=== PATIENT | female | born 1960 | race Caucasian/White ===

== ENCOUNTER 2016-09-14 13:41 | Emergency (ER) | payer BC, OTHER ==
[2016-09-14 13:55] VITALS: BP 166/74
[2016-09-14] MEDS ORDERED: Dexamethasone 4 MG/ML SDV IM ONE (14:19)
--- NOTE | 2016-09-14 14:36 | EDM.PDOC ---
Scribed by Dina Mason 09/14/16 1435 for Robert Reinoso MD ED HPI GENERAL MEDICAL PROBLEM - General Chief Complaint: Back Pain or Injury Stated Complaint: [id number] BACK PAIN Time Seen by Provider: 09/14/16 13:48 Source of Information: Reports: Patient, RN, RN Notes Reviewed History Limitations: Reports: No Limitations - History of Present Illness INITIAL COMMENTS - FREE TEXT/NARRATIVE: Complaining of severe low back pain radiating to left leg/foot sustained 2 weeks ago when pulling weeds. History of severe low back injury 30 years ago, but hasn't had problems with it for years. Denies loss of bowel or bladder control, saddle numbness or motor weakness. Location: Reports: Back Quality: Reports: Ache Severity: Severe Improves with: Reports: None Worsens with: Reports: None Associated Symptoms: Reports: No Other Symptoms Back Pain Score (Numeric/FACES): 10 - Related Data Allergies Allergy/AdvReac Type Severity Reaction Status Date / Time acetaminophen [From Susanna] Allergy Other Verified 09/14/16 14:00 chlorpheniramine Allergy Other Verified 09/14/16 14:00 [From Drjonny] cyclobenzaprine Allergy Other Verified 09/14/16 13:59 [From Flexeril] oxycodone [From OxyContin] Allergy Other Verified 09/14/16 14:00 oxymetazoline [From Drjonny] Allergy Other Verified 09/14/16 14:00 pheniramine [From Dristan] Allergy Other Verified 09/14/16 14:00 phenylephrine [From Drjonny] Allergy Other Verified 09/14/16 14:00 pseudoephedrine Allergy Other Verified 09/14/16 14:00 [From Susanna] Home Meds: Home Meds Cyclobenzaprine [Flexeril] 10 mg PO BID 09/14/16 [History] buPROPion HCl [Forfivo Xl] 1 tab PO DAILY 09/14/16 [History] methylPREDNISolone [Medrol] 1 tab PO ASDIRECTED 09/14/16 [History] oxyCODONE HCl/Acetaminophen [oxyCODONE-Acetaminophen 5-325] 2.5 mg PO Q6HR 09/14 [History] Past Medical History Musculoskeletal History: Reports: Other (See Below) (low yoana k injury 30 years ago.) Endocrine/Metabolic History: Reports: Obesity/BMI 30+ - Past Surgical History GI Surgical History: Reports: Hernia, Abdominal (x2.) Female Surgical History: Reports: Hysterectomy Musculoskeletal Surgical History: Reports: Other (See Below) (left knee surgery. ) ED ROS GENERAL - Review of Systems Review Of Systems: ROS reveals no pertinent complaints other than HPI. ED EXAM,LOWER BACK PAIN/INJURY - Physical Exam Exam: See Below Exam Limited By: No Limitations General Appearance: Alert, WD/WN, No Apparent Distress, Obese Neck: Normal Inspection, Supple, Non-Tender, Full Range of Motion Respiratory/Chest: No Respiratory Distress, Lungs Clear, Normal Breath Sounds, No Accessory Muscle Use, Chest Non-Tender Cardiovascular: Normal Peripheral Pulses, Regular Rate, Rhythm, No Edema, No Gallop, No JVD, No Murmur, No Rub GI/Abdominal: Other (benign obese abdomen) (Female) Exam: Deferred Rectal (Female) Exam: Deferred Back Exam: Other (Decreased ROM L-spine with generalized lower lumbar region and tenderness left greater than right.) Neurological: Other (subjectively decreased sensation to light to left lower extremity. No motor weakness.) Psychiatric: Normal Affect, Normal Mood Skin Exam: Warm, Dry, Intact, Normal Color, No Rash Course - Vital Signs Last Recorded V/S: Last Vital Signs Temp 35.9 C 09/14/16 13:51 Pulse 95 09/14/16 13:51 Resp 20 09/14/16 13:51 BP 166/74 H 09/14/16 13:51 Pulse Ox 97 09/14/16 13:51 - Orders/Labs/Meds Meds: Medications Discontinued Medications Generic Name Dose Route Start Last Admin Trade Name Ofelia PRN Reason Stop Dose Admin Dexamethasone 8 mg 09/14/16 14:19 09/14/16 14:26 Dexamethasone IM 09/14/16 14:20 8 mg ONETIME ONE Administration Departure - Departure Time of Disposition: 14:22 Disposition: Home, Self-Care 01 Condition: Fair Clinical Impression: Acute exacerbation of chronic low back pain, Lumbosacral radiculopathy - Discharge Information Instructions: Lumbosacral Radiculopathy Forms: ED Department Discharge Additional Instructions: RX: Decadron 4mg. Increase Gabapentin to 600mg 3 times a day. Continue other meds as prescribed. Follow up tomorrow with Maria A Leiphon for recheck and MRI of L-spine. I have read and agree with the documentation that has been completed regarding this visit. By signing this record, I attest that the documentation was completed in my physical presence and is an accurate record of the encounter.
== END 2016-09-14 14:37 | disposition home or self-care (01) ==
LOC: DL.ED 13:41
DX: M54.17 Radiculopathy, lumbosacral region (principal); Z88.8 Allergy status to other drugs, medicaments and biological substances; Z88.6 Allergy status to analgesic agent; Z79.899 Other long term (current) drug therapy; Z90.710 Acquired absence of both cervix and uterus; Z88.5 Allergy status to narcotic agent
CPT/HCPCS: 96372; 99283; J1100

== ENCOUNTER 2017-11-11 06:31 | Day surgery (SDC) | payer BC, OTHER ==
[~2017-11-11 06:31] MED LIST: Dextrose 5%-0.45% NaCl 1,000 ML IV SCH; Midazolam 1 MG/ML 2 ML SDV ONE; Sodium Chloride 0.9% 10 ML Syringe FLUSH PRN; fentaNYL 100 MCG/2 ML SDV ONE
[2017-11-11] MEDS ORDERED: Midazolam 1 MG/ML 2 ML SDV IV ONE ×4 (06:32→07:22)
[2017-11-11] MEDS ORDERED: fentaNYL 100 MCG/2 ML SDV IV ONE ×3 (06:32→07:18)
--- NOTE | 2017-11-11 10:09 | OR ---
DATE: 11/11/2017 PROCEDURES: Esophagogastroduodenoscopy and multiple pinch biopsies. INSTRUMENT USED: GIF-H180 Olympus video panendoscope. PREMEDICATIONS: No oral topical anesthesia used. Fentanyl 100 mcg, Versed 2 mg intravenous. Nasal O2 cannula. The procedure was done under pulse oximetry, BP recording, and potline monitor. INDICATIONS: The patient with longstanding persistent heartburn, abdominal pain, dyspepsia unexplained, and not responsive to medical measures, on long- term aspirin. DESCRIPTION OF PROCEDURE: Esophagogastroduodenoscopy is performed for detection of any active erosive lesions. Parrish esophagus and/or malignancy also under consideration. H. pylori status to be determined. Endoscopic hemostasis therapy if needed. The scope was passed with ease. Adequate visualization of the esophagus was made from proximal to distal areas. No upper esophageal lesions identified. No distal esophageal stricture. No uphill or downhill esophageal varices. No Jil-Panchal tear. No evidence of erosive esophagitis by [place] criteria. No esophageal polyp or tumor mass identified. Z-line was seen at around 40 cm distal to the oral verge, configuration consistent with grade 1 by ZAP classification. No proximal gastric varices noted. Gastric fundus examination by retroflexion showed no polypoid lesions. No gastric ulcer, malignant mass, or vascular ectasia identified. Scattered gastric antral erosions were noted without bleeding from them. Duodenal bulb showed no ulcer. Visualized second part of the duodenum was unremarkable. Multiple pinch biopsies were taken from the gastric antrum and proximal body and sent for pyloric test for H. pylori, and if negative in an hour, the tissue is to be sent for histopathology. No bleeding was noted from any of the visualized areas at the completion of examination. Photographs were taken of the duodenal bulb, gastric antrum, fundus, and distal esophagus. IMPRESSION: Gastric antral erosions. The patient tolerated the procedure well. [facility] /[id number]
[2017-11-11 10:24] VITALS: BP 125/82
== END 2017-11-11 09:35 | disposition home or self-care (01) ==
LOC: DL.ENDO 06:31
PROVIDERS: ATTEND Internal Medicine Gastroenterology
DX: R12 Heartburn (principal); R10.9 Unspecified abdominal pain; K63.89 Other specified diseases of intestine; E66.09 Other obesity due to excess calories; E78.5 Hyperlipidemia, unspecified; G47.33 Obstructive sleep apnea (adult) (pediatric); Z88.1 Allergy status to other antibiotic agents; Z88.5 Allergy status to narcotic agent; Z88.6 Allergy status to analgesic agent; Z88.8 Allergy status to other drugs, medicaments and biological substances; Z91.041 Radiographic dye allergy status
CPT/HCPCS: 43239; 87077; J7042; J2250; J3010

== ENCOUNTER 2018-04-14 11:01 | Emergency (ER) | payer BC, OTHER ==
--- NOTE | 2018-04-14 11:26 | EDM.PDOC ---
ED HPI GENERAL MEDICAL PROBLEM - General Chief Complaint: Gastrointestinal Problem Stated Complaint: HAS FLU FEELING WEAK Time Seen by Provider: 04/14/18 11:26 Source of Information: Reports: Patient, Old Records, RN, RN Notes Reviewed History Limitations: Reports: No Limitations - History of Present Illness INITIAL COMMENTS - FREE TEXT/NARRATIVE: Pt presents to ER from home by POV with c/o onset of nausea, vomiting, diarrhea , generalized abdominal pain/cramping, and fevers 1 week ago. Her had the same symptoms begin at about the same time but is already nearly back to normal. Pt states that she is mostly nauseated now, no longer vomiting much. She continues with abdominal cramping and some diarrhea, but some small amounts of formed stool, and lots of gas. Pt feels very dehydrated. She denies cough, runny nose, or sore throat. Duration: Week(s): (1), Improving Location: Reports: Abdomen Quality: Reports: Ache, Other (Cramping) Severity: Moderate Improves with: Reports: None Worsens with: Reports: None Context: Reports: Sick Contact Associated Symptoms: Reports: No Other Symptoms Epigastric Pain Score (Numeric/FACES): 5 - Related Data Allergies Allergy/AdvReac Type Severity Reaction Status Date / Time cephalexin Allergy Rash Verified 04/14/18 11:14 chlorpheniramine Allergy Other Verified 04/14/18 11:14 [From Dristan] cyclobenzaprine Allergy Other Verified 04/14/18 11:14 [From Flexeril] cyclosporine [From Restasis] Allergy Other Verified 04/14/18 11:14 estrogens, conjugated Allergy Other Verified 04/14/18 11:14 [From Premarin] fluoxetine Allergy Hives Verified 04/14/18 11:14 Iodinated Contrast- Oral and Allergy Hives Verified 04/14/18 11:14 IV Dye isopropyl alcohol Allergy Blisters Verified 04/14/18 11:14 oxycodone [From OxyContin] Allergy Other Verified 04/14/18 11:14 oxymetazoline [From Dristan] Allergy Other Verified 04/14/18 11:14 pheniramine [From Dristan] Allergy Other Verified 04/14/18 11:14 phenylephrine [From Dristan] Allergy Other Verified 04/14/18 11:14 pseudoephedrine Allergy Other Verified 04/14/18 11:14 [From Dristan] triprolidine [From Actifed] Allergy Other Verified 04/14/18 11:14 azithromycin AdvReac Other Verified 04/14/18 11:14 NSAIDS (Non-Steroidal AdvReac Other Verified 04/14/18 11:14 Anti-Inflamma [place] Allergy Itching Uncoded 04/14/18 11:14 Home Meds: Home Meds Acetaminophen [Pain Reliever] 500 mg PO Q6H 11/10/17 [History] Benzonatate 200 mg PO TID PRN 11/10/17 [History] Gabapentin [Neurontin] 600 mg PO TID 11/10/17 [History] Lysine 500 mg PO DAILY 11/10/17 [History] Meclizine [Antivert] 12.5 mg PO TID PRN 11/10/17 [History] Lynette 1 cap PO TID 11/10/17 [History] Omeprazole 20 mg PO DAILY 11/10/17 [History] Scopolamine [Transderm-Scop] 1 patch TOP Q3D PRN 11/10/17 [History] diphenhydrAMINE [Benadryl] 25 mg PO Q6H PRN 11/10/17 [History] traMADol HCl [Tramadol HCl] 50 mg PO ASDIRECTED 11/10/17 [History] Past Medical History HEENT History: Reports: None Cardiovascular History: Reports: Heart Murmur, High Cholesterol Respiratory History: Reports: Sleep Apnea Gastrointestinal History: Reports: GERD Genitourinary History: Reports: None ABATTOIR MANAGER History: Reports: None Musculoskeletal History: Reports: Back Pain, Chronic, Other (See Below) Other Musculoskeletal History: sciatica, low back syndrome Neurological History: Reports: None Psychiatric History: Reports: Depression, Other (See Below) Other Psychiatric History: CLAUSTROPHOBIC Endocrine/Metabolic History: Reports: Obesity/BMI 30+ Hematologic History: Reports: None Immunologic History: Reports: None Oncologic (Cancer) History: Reports: None Dermatologic History: Reports: None - Infectious Disease History Infectious Disease History: Reports: None, Chicken Pox - Past Surgical History Head Surgeries/Procedures: Reports: None HEENT Surgical History: Reports: Laser Surgery Cardiovascular Surgical History: Reports: None Respiratory Surgical History: Reports: None GI Surgical History: Reports: Appendectomy, Hernia, Abdominal Female Surgical History: Reports: Hysterectomy, Salpingo-Oophorectomy Musculoskeletal Surgical History: Reports: Carpal Tunnel, Other (See Below) Other Musculoskeletal Surgeries/Procedures:: CARPAL TUNNEL SURGERY TO BOTH WRISTS Social & Family History - Family History Family Medical History: Noncontributory - Caffeine Use Caffeine Use: Reports: Coffee Other Caffeine Use: 12. oz - Living Situation & Occupation Living situation: Reports: , with Spouse Occupation: Employed ED ROS GENERAL - Review of Systems Review Of Systems: ROS reveals no pertinent complaints other than HPI. ED EXAM, GI/ABD - Physical Exam Exam: See Below Exam Limited By: No Limitations General Appearance: Alert, WD/WN, No Apparent Distress, Obese Eyes: Bilateral: Normal Appearance (no scleral icterus) Nose: Normal Inspection, Normal Mucosa, No Blood Throat/Mouth: Normal Lips, Normal Teeth, Normal Gums, Normal Oropharynx, Normal Voice, No Airway Compromise, Other (Dry oral membranes) Head: Atraumatic, Normocephalic Neck: Normal Inspection, Supple, Non-Tender, Full Range of Motion Respiratory/Chest: No Respiratory Distress, Lungs Clear, Normal Breath Sounds, No Accessory Muscle Use, Chest Non-Tender Cardiovascular: Normal Peripheral Pulses, Regular Rate, Rhythm, No Edema, No Gallop, No JVD, No Murmur, No Rub GI/Abdominal Exam: Soft, No Distention, No Abnormal Bruit, Tender (mild epigastric tenderness), Abnormal Bowel Sounds (Hyperactive). No: Guarding, Rigid, Rebound (Female) Exam: Deferred Rectal (Female) Exam: Deferred Back Exam: Normal Inspection Extremities: Normal Inspection Neurological: Alert, Oriented, CN II-XII Intact, Normal Cognition, Normal Gait, No Motor/Sensory Deficits Psychiatric: Normal Affect, Normal Mood Skin Exam: Warm, Dry, Intact, Normal Color, No Rash Course - Vital Signs Last Recorded V/S: Last Vital Signs Temp 37.3 C 04/14/18 11:10 Pulse 93 04/14/18 11:10 Resp 18 04/14/18 11:10 BP 154/87 H 04/14/18 11:10 Pulse Ox 93 L 04/14/18 11:10 - Orders/Labs/Meds Orders: Active Orders 24 hr Category Date Time Status Peripheral IV Care [RC] . DIRECTED Care 04/14/18 11:27 Active Sodium Chloride 0.9% [Saline Flush] Med 04/14/18 11:27 Active 10 ml FLUSH ASDIRECTED PRN Peripheral IV Insertion Adult [OM.PC] Stat Oth 04/14/18 11:26 Ordered Medication Orders Sodium Chloride (Saline Flush) 10 ml FLUSH ASDIRECTED PRN PRN Reason: Keep Vein Open Last Admin: 04/14/18 11:48 Dose: 10 ml Labs: Laboratory Tests 04/14/18 04/14/18 04/14/18 Range/Units 11:37 11:37 13:15 WBC 7.5 (5.0-10.0) 10^3/uL RBC 5.39 (4.2-5.4) 10^6/uL Hgb 14.8 (12.0-16.0) g/dL Hct 44.3 (37.0-47.0) % MCV 82.2 (80-100) fL MCH 27.5 (27.0-34.0) pg MCHC 33.4 (33.0-35.0) g/dL Plt Count 197 (150-450) 10^3/uL Neut % (Auto) 55.5 (42.2-75.2) % Lymph % (Auto) 32.7 (20.5-50.1) % [place] % (Auto) 8.8 H (2-8) % Eos % (Auto) 2.5 (1.0-3.0) % Baso % (Auto) 0.5 (0.0-1.0) % Sodium 138 (135-145) mmol/L Potassium 3.4 L (3.6-5.0) mmol/L Chloride 101 (101-111) mmol/L Carbon Dioxide 26.0 (21.0-31.0) mmol/L Anion Gap 14.4 BUN 17 (7-18) mg/dL Creatinine 0.8 (0.6-1.3) mg/dL Est Cr Clr Drug Dosing 70.88 mL/min Estimated GFR (MDRD) > 60 BUN/Creatinine Ratio 21.25 Glucose 98 (74-105) mg/dL Calcium 9.0 (8.4-10.2) mg/dl Total Bilirubin 0.8 (0.2-1.0) mg/dL AST 56 H (10-42) IU/L ALT 43 (10-60) IU/L Alkaline Phosphatase 69 (42-121) IU/L Total Protein 7.4 (6.7-8.2) g/dl Albumin 4.1 (3.2-5.5) g/dl Globulin 3.3 Albumin/Globulin Ratio 1.24 Amylase 49 (28-100) U/L Lipase 54 H (22-51) U/L Urine Color Yellow (YELLOW) Urine Appearance Clear (CLEAR) Urine pH 5.5 (5.0-9.0) Ur Specific [place] <= 1.005 (1.005-1.030) Urine Protein Negative (NEGATIVE) Urine Glucose (UA) Negative (NEGATIVE) Urine Ketones Negative (NEGATIVE) Urine Occult Blood Negative (NEGATIVE) Urine Nitrite Negative (NEGATIVE) Urine Bilirubin Negative (NEGATIVE) Urine Urobilinogen 0.2 (0.2-1.0) mg/dL Ur Leukocyte Esterase Negative (NEGATIVE) Meds: Medications Generic Name Dose Route Start Last Admin Trade Name Freq PRN Reason Stop Dose Admin Sodium Chloride 10 ml 04/14/18 11:27 04/14/18 11:48 Saline Flush FLUSH 10 ml ASDIRECTED PRN Administration Keep Vein Open Discontinued Medications Generic Name Dose Route Start Last Admin Trade Name Freq PRN Reason Stop Dose Admin Sodium Chloride 1,000 mls @ 999 mls/hr 04/14/18 11:27 04/14/18 11:50 Normal Saline IV 04/14/18 12:27 999 mls/hr .BOLUS ONE Administration Ondansetron HCl 4 mg 04/14/18 11:27 04/14/18 11:53 Zofran IV 04/14/18 11:28 4 mg ONETIME ONE Administration - Re-Assessments/Exams Free Text/Narrative Re-Assessment/Exam: 04/14/18 12:58 Pt feeling much better following tx in ER. Benign exam and no lab findings indicative of serious bacterial intra-abdominal process or any indication of a surgical abdomen. The clinic picture is consistent with a gastroenteritis syndrome, likely viral, and appears to be spontaneously resolving. I plan to d/ c the pt home for symptomatic care and have explained to her signs and symptoms which should prompt her to return for further evaluation. Departure - Departure Time of Disposition: 13:32 Disposition: Home, Self-Care 01 Condition: Good Clinical Impression: Gastroenteritis presumed infectious, Dehydration, mild - Discharge Information *PRESCRIPTION DRUG MONITORING PROGRAM REVIEWED*: Not Applicable *COPY OF PRESCRIPTION DRUG MONITORING REPORT IN PATIENT ROXANE: Not Applicable Instructions: Viral Gastroenteritis, Adult, Dehydration, Adult, [id number] Forms: ED Department Discharge Additional Instructions: Rx: Zofran 4mg Clear liquid diet until nausea and vomiting resolve, then advance to soft bland diet as tolerated. Avoid dairy products, fried or greasy foods, and spicy foods until completely improved. Follow up in clinic if not improving in 3 to 5 days. Return to ER if pain becomes severe, you are unable to tolerated clear liquids without vomiting, or if any other emergent symptoms develop. - My Orders Last 24 Hours: My Active Orders 04/14/18 11:26 Peripheral IV Insertion Adult [OM.PC] Stat 04/14/18 11:27 Peripheral IV Care [RC] . DIRECTED Sodium Chloride 0.9% [Saline Flush] 10 ml FLUSH ASDIRECTED PRN - Assessment/Plan Last 24 Hours: My Active Orders 04/14/18 11:26 Peripheral IV Insertion Adult [OM.PC] Stat 04/14/18 11:27 Peripheral IV Care [RC] . DIRECTED Sodium Chloride 0.9% [Saline Flush] 10 ml FLUSH ASDIRECTED PRN
[2018-04-14] MEDS ORDERED: Ondansetron 4 MG/2 ML SDV IV ONE (11:27)
[2018-04-14] MEDS ORDERED: Sodium Chloride 0.9% 1,000 ML IV ONE (11:27)
[2018-04-14] MEDS ORDERED: Sodium Chloride 0.9% 10 ML Syringe FLUSH PRN (11:27)
[2018-04-14 11:33] VITALS: BP 154/87
[2018-04-14 12:02] LABS: ANION GAP 14.4; CHLORIDE,CL 101 mmol/L (101-111); SODIUM,NA 138 mmol/L (135-145)
== END 2018-04-14 13:45 | disposition home or self-care (01) ==
LOC: DL.ED 11:01
DX: K52.9 Noninfective gastroenteritis and colitis, unspecified (principal); E86.0 Dehydration; E66.9 Obesity, unspecified; Z88.1 Allergy status to other antibiotic agents; Z88.8 Allergy status to other drugs, medicaments and biological substances
CPT/HCPCS: 36415; 80053; 81003; 82150; 83690; 85025; 96365; 96375; 99284; J2405; J7030